=== PATIENT | male | born 1995 | race Caucasian/White ===

== ENCOUNTER 2023-12-16 16:38 | Emergency (ER) | payer BC ==
[~2023-12-16] VITALS: Ht 177.8 cm; Wt 95.5 kg
[~2023-12-16 16:38] MED LIST: AMOXICILLIN 50500 MG PO; AMOXICILLIN/CLA1 TA1 PO; ASPIRIN E.C. 8181 MG PO; CEPHALEXIN500 M1 PO; CLEOCIN HCL300 MG PO; CRUTCHES MC; FLEXERIL 1010 MG/TAB PO; MOTRIN 200200 MG/TAB PO; MOTRIN 800800 MG/TAB PO; NAPROSYN500 MG PO; NO HOME MEDICATIONS; NORCO 325 MG-51 TAB PO; NORCO 325 MG-7.1 TAB PO; PREDNISONE20 MG PO; ROXICODONE 55 MG/TAB PO; SEPTRA DS 8001 TAB PO; TYLENOL 325MG325 MG PO; TYLENOL 500MG500 MG PO; ULTRAM 50MG TAB50 MG PO; ZITHROMAX 250M250 MG PO; ZOFRAN 4MG T4 MG/TAB PO
[2023-12-16 16:42] VITALS: BP 117/80; TEMP 98.5
[2023-12-16] MEDS ORDERED: Ibuprofen 400 MG TAB PO ONE (17:00)
[2023-12-16] MEDS ORDERED: CRUTCHES MC (17:13)
[2023-12-16 17:23] VITALS: PULSE 81
== END 2023-12-16 17:24 | disposition home or self-care (01) ==
LOC: COL.ER 16:38
DX: M25.561 Pain in right knee (principal); Z98.890 Other specified postprocedural states; X50.1XXA Overexertion from prolonged static or awkward postures, initial encounter; Y93.89 Activity, other specified; Y92.830 Public park as the place of occurrence of the external cause
CPT/HCPCS: L1846

== ENCOUNTER 2024-08-02 18:36 | Emergency (ER) | payer SELFPAY ==
[~2024-08-02] VITALS: Ht 172.7 cm; Wt 72.7 kg
[2024-08-02 18:51] LABS: BASO # 0.1 K/mm3 (0.0-0.2); BASO % 0.7 % (0.0-2.0); EOS # 0.1 K/mm3 (0.0-0.7); EOS % 0.9 % (0.0-4.0); GRAN # 7.1 K/mm3 (1.4-6.5); GRAN % 58.7 % (42.2-75.2); HEMATOCRIT 47.4 % (42.0-52.0); LYMPH # 3.6 K/mm3 (1.2-3.4); LYMPH % 29.6 % (20.0-51.0); MEAN CELL VOLUME 88 fl (80.0-100.0); MEAN CORPUSCULAR HEMOGLOBIN 30 pg (27-31); MEAN CORPUSCULAR HGB CONC 34 g/dl (33.0-37.0); MEAN PLATELET VOLUME 11.3 fl (7.4-10.4); MONO # 1.2 K/mm3 (0.1-0.6); MONO % 9.8 % (1.7-9.3); PLATELET COUNT 278 K/mm3 (130-400); RED BLOOD COUNT 5.36 M/mm3 (4.20-5.60); REDCELL DISTRIBUTION WIDTH-CV 12.9 % (11.5-14.5)
[2024-08-02 19:08] LABS: ALANINE AMINOTRANSFERASE 31 U/L (0-55); ALBUMIN 4.3 g/dL (3.5-5.0); ALKALINE PHOSPHATASE 167 U/L (40-150); ANION GAP 11 mmol/L (7-16); AST,SGOT 20 U/L (5-34); BILIRUBIN,TOTAL 0.6 mg/dL (0.2-1.2); BLOOD UREA NITROGEN 10 mg/dL (9-21); CALCIUM 8.9 mg/dL (8.4-10.2); CHLORIDE 107 mEq/L (98-107); CREATINE KINASE 136 U/L (30-200); CREATININE, serum 1.11 mg/dL (0.72-1.25); GLUCOSE 102 mg/dL (70-99); POTASSIUM 3.6 mEq/L (3.5-4.5); SODIUM 140 mEq/L (136-145)
[2024-08-02] MEDS ORDERED: NS 1,000 ML IV ONE (19:15)
[2024-08-02 19:24] LABS: TROPONIN-I < 0.010 ng/mL (0.00-0.033)
[2024-08-02 21:19] LABS: TRICYCLIC ANTIDEPRESS URINE NEGATIVE (NEGATIVE)
[2024-08-02 21:48] VITALS: BP 110/73; PULSE 81; TEMP 98.2
[2024-08-05 09:57] LABS: TOTAL PROTEIN 7.2 g/dl (6.2-8.1)
== END 2024-08-02 21:48 | disposition home or self-care (01) ==
LOC: COL.ER 18:36
PROVIDERS: Nurse Practitioner
DX: R07.89 Other chest pain (principal); R55 Syncope and collapse; Z87.891 Personal history of nicotine dependence
CPT/HCPCS: J7030